=== PATIENT | male | born 1955 | race Caucasian/White ===

== ENCOUNTER → 2017-05-29 | Outpatient (CLI) | payer OTHER ==
--- NOTE | 2017-05-29 12:48 | RAD ---
2 view CXR: Clinical indications: Heart disease. Shortness of air.. Findings: No acute lung infiltrate or pleural effusion or pulmonary edema or lung mass or pneumothorax is seen. The heart size is at the upper limits of normal. The pulmonary vasculature, mediastinum and both aixa are unremarkable. The osseous structures appear intact. Impression: No acute radiographic abnormality is seen.
== END | disposition home or self-care (01) ==
LOC: RAD 08:59
PROVIDERS: ATTEND Neuromusculoskeletal Medicine, Sports Medicine
DX: I51.89 Other ill-defined heart diseases (principal)
CPT/HCPCS: 71020